=== PATIENT | female | born 1930 | race Caucasian/White ===

== ENCOUNTER 2017-06-28 12:25 | Inpatient (IN) ==
[2017-06-28] MEDS ORDERED: CARDIZEM IV ONE (13:10)
[2017-06-28 13:21] LABS: BASO% 0.3 % (0.0-0.8); HEMATOCRIT 30.3 % (37.0-47.0); HEMOGLOBIN 8.5 g/dL (12.0-16.0); LYMPH# 0.53 X1000 (1.2-3.4); LYMPH% 4.4 % (20.5-51.1); MANUAL DIFF NEEDED? NO; MCH 18.6 PG (27-31); MCHC 28.1 g/dL (33-37); MCV 66.4 FL (81-99); MONO# 0.42 X1000 (0.11-0.59); MONO% 3.5 % (1.7-9.3); MPV 10.3 FL (7.4-10.4); NEUT% 91.8 % (42.2-75.2); PLT 412 X1000 (130-400); RBC 4.56 XMIL (4.2-5.4)
[2017-06-28 13:41] LABS: INR 1.04
[2017-06-28 13:42] LABS: ALBUMIN 3.5 g/dL (3.5-5.0); POTASSIUM 4.4 mmol/L (3.5-5.1); TOTAL BILIRUBIN 0.29 mg/dL (0.20-1.00); TOTAL PROTEIN 6.3 g/dL (6.3-8.3)
[2017-06-28 13:44] LABS: PTT HEPARIN PROTOCOL 23.8 Seconds
--- NOTE | 2017-06-28 13:48 | EKG Report ---
Test Performed on : 06/28/2017 12:33:47 PM Test Reason : ABNORMAL EKG Blood Pressure : / mmHG Vent. Rate : 138 BPM Atrial Rate : 150 BPM P-R Int : 000 ms QRS Dur : 134 ms QT Int : 382 ms P-R-T Axes : 000 -74 083 degrees QTc Int : 578 ms Atrial fibrillation. with rapid ventricular response. Right bundle branch block Left anterior fascicular block Bifascicular block Anterior infarct , age undetermined T wave abnormality, consider inferior ischemia Abnormal ECG When compared with ECG of 11-FEB-2016 07:26, Anterior infarct is now present ST elevation has replaced ST depression in Anterolateral leads T wave inversion now evident in Inferior leads T wave inversion less evident in Anterior leads Unconfirmed Result
[2017-06-28] MEDS ORDERED: CARDIZEM 100 MG/NS 100 MG/100 ML IVPB IV SCH (13:55)
--- NOTE | 2017-06-28 14:00 | Diag Imaging Result Doc PS360 ---
EXAM: CHEST-PORTABLE INDICATION: chest pain TECHNIQUE: One view COMPARISON: 02/08/2016 FINDINGS: The lungs are grossly clear. There is no discrete pleural fluid collection or pneumothorax. The cardiomediastinal silhouette and central vasculature are grossly unremarkable. There are several chronic appearing rib fractures on the right. However, they cannot be identified on the previous study from 2016. IMPRESSION: No evidence of acute pathology by plain radiograph. Electronically signed by Kyler Pagan 06/28/2017 1:58 PM
[2017-06-28 15:05] LABS: URINE MICRO REVIEW NEEDED? NO; URINE SOURCE CATH
[2017-06-28 15:10] LABS: BILIRUBIN URINE NEGATIVE (NEGATIVE); BLOOD URINE NEGATIVE (NEGATIVE); COLOR YELLOW; GLUCOSE URINE NEGATIVE (NEGATIVE); LEUKOCYTES URINE TRACE (NEGATIVE); NITRITE URINE NEGATIVE (NEGATIVE); PROTEIN URINE 30 mg/dL (NEGATIVE); SP GRAVITY URINE 1.024; TURBIDITY URINE HAZY (CLEAR); UR EPITHELIAL CELLS <10 /HPF (<10); URINE BACTERIA 4+ /HPF; URINE RBC <10 /HPF (<10); UROBILINOGEN URINE 2 mg/dL (NORMAL)
[2017-06-28 15:42] LABS: CK INDEX 10.1 (0.0-2.5); CK-MB 57.62 ng/mL (0.0-5.0)
[2017-06-28] MEDS ORDERED: HEPARIN IV ONE (16:23)
[2017-06-28] MEDS ORDERED: ASPIRIN PO ONE (16:26)
[2017-06-28] MEDS: HEPARIN 25,000 UNITS/D5W 25,000 UNIT/250 ML IV.SOLN IV SCH ×2 (16:30→19:43)
--- NOTE | 2017-06-28 16:48 | CONSULTATION ---
DATE OF CONSULTATION: 06/28/2017 HISTORY: Ms. Kirk is an 87-year-old female, known to our service who has a chronic atrial fibrillation, hypertension, pulmonary arterial hypertension, history of blood loss and chronic anemia, and breast cancer status post mastectomy in the past. She was brought to the emergency room with palpitations over the last 1-2 days, then that worsened and she also complains of having epigastric and retrosternal chest discomfort. However, she said that when she takes a deep breath, the symptoms of chest pain get worse. She has chronic anemia. Does not complain of any GI or bleeding at the present time. She also complains of being short of breath. She is noted to have a rapid ventricular rate. She was started on a Cardizem drip. REVIEW OF SYSTEMS: A 14-point review of systems was done. GI: There is no history of nausea. There is no history of hematemesis or melena. Central nervous system: No focal weakness to suggest a CVA or TIA. Genitourinary: There is no dysuria or hematuria. Respiratory system as above. In addition, there is no history of cough, expectoration or hemoptysis. PAST MEDICAL HISTORY: 1. Atrial fibrillation. 2. Has chronic anemia, is not anticoagulated given GI bleed in the distant past and fall also. 3. Hypertension. 4. Hypothyroidism. 5. Status post mastectomy. 6. LV dysfunction. Ejection fraction of 45-50%. 7. History of breast cancer. 8. Cataract extraction. 9. Hysterectomy. 10. Mastectomy. SOCIAL HISTORY: She does not smoke and does not drink. Patient is , retired and lives with the help of her son. ALLERGIES: She is allergic to statins. PHYSICAL EXAMINATION: Vital Signs: Blood pressure was 126/82. Cardiovascular: Normal jugular venous pressure. First and second heart sounds were heard. There is faint systolic murmur. Respiratory system: Normal air entry with no crepitations. Abdomen: Soft, nontender. There was no guarding or rigidity. Bowel sounds were heard. Central nervous system: Alert and oriented. Moving all 4 extremities. Extremities: Examination revealed trace edema. HEENT: She looked pale. Pupils were reacting to light. LABORATORY EXAMINATION: Sodium 138, potassium 4.4, BUN 21, creatinine 1.0. Hemoglobin 8.5, hematocrit 30.3, platelet count of 412, WBC 11.96. D-dimer 1.74. CK-MB 57, CK of 568, troponin 2.380. Electrocardiogram revealed atrial fibrillation. There was no acute ST-T changes to suggest ischemia. There was right bundle branch block. Electrocardiogram revealed normal sinus rhythm. The old electrocardiogram revealed normal sinus rhythm with interventricular conduction delay. Electrocardiogram here revealed atrial fibrillation with interventricular conduction delay with ST elevation noted in the lateral leads, that was earlier this morning and she has home health. Compared to the old EKG, there is an electrocardiogram difference. ASSESSMENT AND PLAN: Ms. Kelly Kirk is an 87-year-old lady with chronic atrial fibrillation with previous electrocardiogram having interventricular conduction delay. Has been having chest pain. There is a pleuritic component of chest pain as well with elevated D-dimers; however, she is going to have a CT scan done. ST elevation was noted in the earlier EKGs and we will start her on IV heparin given the abnormal EKG, which was done much earlier and she has been having these symptoms for over a couple of days and abnormal cardiac enzymes. CK one set 568, CK-MB 57, troponin of 2.380, D-dimer 1.74. She is recommended a cardiac catheterization. Risks, benefits and alternatives were explained to the family and patient. In addition, would recommend transfer her to [facility]. We will start her on IV heparin. cc: Clifford Kay MD
--- NOTE | 2017-06-28 17:13 | Diag Imaging Result Doc PS360 ---
EXAM: CT ANGIOGRM/PULMONARY ARTERIES INDICATION: chest pain, elevated d-dimer TECHNIQUE: Dose reduction protocol was used. In addition to standard thin section axial images, coronal and radial MIPS were obtained. COMPARISON: None. FINDINGS: There is no evidence of pulmonary embolism. There is patchy aortic atherosclerotic calcification. There is no evidence of aortic aneurysm. There is coronary artery calcification. There is moderate cardiomegaly. There is interstitial thickening with a basilar predominance that likely represents mild edema. There is also a component of subsegmental atelectasis at the lung bases. There is no pleural fluid collection and no pneumothorax. Limited views of the upper abdomen reveals a calcified stone in the lumen of the gallbladder and an intrarenal stone on the left. IMPRESSION: 1.No evidence of pulmonary embolism. 2.Cardiomegaly. 3.Interstitial thickening with a basilar predominance likely representing mild pulmonary edema. 4.Other incidental/nonacute findings detailed above. Electronically signed by Kyler Pagan 06/28/2017 5:11 PM
--- NOTE | 2017-06-28 17:53 | PROVIDER DOCUMENTATION ---
This chart was entered by Elbert Partida Scribe, acting as scribe for Hao Barnard MD. HPI-Chest Pain - General Chief Complaint: Chest Pain Stated Complaint: ABNORMAL EKG Time Seen by Provider: 06/28/17 12:52 Source: patient Allergies/Adverse Reactions: Patient Allergies Allergy/AdvReac Type Severity Reaction Status Date / Time Tlaeisi-Heq-Blt Reductase Allergy VOMITING Verified 02/08/16 11:19 Inhibitor Home Medications: Home Medication List Medication Instructions Recorded Confirmed Last Taken Type Ezetimibe [Zetia] 10 mg PO DAILY 04/01/15 02/08/16 02/08/16 10:30 History Levothyroxine [Synthroid] 75 microgm PO DAILY 04/01/15 02/08/16 02/08/16 History Diltiazem L.a. [Cardizem LA] 180 mg PO BID #60 tablet 02/13/16 Unknown Rx Docusate Sodium [Colace] 100 mg PO BID #60 capsule 02/13/16 Unknown Rx Ferrous Sulfate 325 mg PO BID #60 tablet 02/13/16 Unknown Rx Metoprolol Succinate E.r. [Toprol 50 mg PO BID #60 tablet 02/13/16 Unknown Rx Xl] - History of Present Illness-CP Nature of Presenting Problem: Patient is a 87 y/o F that presents to the ER after having substernal chest pressure( felt like indigestion). denies shortness of breath, n/v, or back pain. Pain is gone when arrival in the ER> patient was sent by PCP for evaluation after having abnormal EKG in office Location: reports: substernal Quality of Pain: reports: indigestion Severity in ED: moderate Onset/Duration: abrupt, this morning Timing: improving Context/Activities at Onset: reports: none Modifying Factors: improves with: nothing Associated Symptoms: reports: heartburn. denies: back pain, diaphoresis, fever/ chills, nausea, shortness of breath, vomiting Nitro Today/Relief: no nitro taken today Aspirin Treatment Today: 325 mg x 1, provided by ED Prior Chest Pain/Cardiac Workup: reports: other (a-fib) Similar Symptoms Previously?: No Recently Seen Here or By Another Healthcare Provider: Yes Review of Systems - Adult - REVIEW OF SYSTEMS - ADULT Constitutional: denies: chills, fever Eyes: reports: no symptoms reported Ears, Nose, Mouth & Throat: reports: no symptoms reported Cardiovascular: reports: chest pain. denies: orthopnea, palpitations, syncope Respiratory: denies: cough, shortness of breath, wheezing Gastrointestinal: denies: abdominal pain, hematemesis, diarrhea, nausea, rectal bleeding, vomiting Genitourinary: reports: no symptoms reported Musculoskeletal: reports: no symptoms reported Integumentary: reports: no symptoms reported Neurological: reports: no symptoms reported Psychiatric: reports: no symptoms reported Endocrine: reports: no symptoms reported Hematologic/Lymphatic: reports: no symptoms reported Allergic/Immunologic: reports: no symptoms reported All Other Systems: Reviewed and Negative Past History - Adult - PAST MEDICAL HISTORY-ADULT Review of Records: reports: Old Records Reviewed, Nursing Assessment Review, Medications Reviewed Cardiovascular: reports: A-Fib, HTN, hyperlipidemia Obstetrical/Gynecological: reports: other (breast ca) Endocrine/Immune: reports: thyroid disorder - PRIOR SURGERIES/PROCEDURES Surgical/Procedure History: reports: hysterectomy, breast (right masectomy) - IMMUNIZATION STATUS Childhood Immunizations: See Nurse Assessment Flu Vaccine: See Nurse Assessment - FAMILY HISTORY Family History: reviewed, not pertinent - SOCIAL HISTORY Smoking: non-smoker Living Situation: family Physical Exam-General - PHYSICAL EXAM-ADULT Initial Vital Signs Reviewed: Yes - CONSTITUTIONAL General Appearance: alert, mild distress, moderate distress - EYES Eyes: PERRL/EOMI, pale conjunctivae - HEAD, EARS, NOSE, MOUTH & THROAT HENMT: normocephalic/atraumatic, normal ENT inspection, other (dry oral mucosa) - NECK Neck: full range of motion, normal inspection - RESPIRATORY Respiratory: lungs clear, normal breath sounds, no respiratory distress, no accessory muscle use - CARDIOVASCULAR Cardiovascular: no JVD, irregularly irregular - GASTROINTESTINAL (ABDOMEN) Abdominal Exam: normal bowel sounds, non tender, soft - MUSCULOSKELETAL Extremity: normal range of motion, no pedal edema, normal capillary refill, pelvis stable - SKIN Integumentary: pallor. negative: cyanosis - NEUROLOGIC Neurologic: grossly normal, no motor/sensory deficits - PSYCHIATRIC Psych/Mental Status: other (to her normal baseline) Progress - PLAN OF CARE/RESULTS Progress/Plan/Lab Results: Vital Signs - 8 hr 06/28/17 12:32 06/28/17 14:00 06/28/17 17:01 Temperature 98.3 F Pulse Rate 110 H 108 H 91 H Respiratory Rate 18 22 Blood Pressure 106/72 126/82 169/79 O2 Sat by Pulse Oximetry 100 99 97 Laboratory Results - last 24 hr 06/28/17 06/28/17 06/28/17 13:09 13:09 13:09 WBC 11.96 H RBC 4.56 Hgb 8.5 L Hct 30.3 L MCV 66.4 L MCH 18.6 L MCHC 28.1 L RDW Std Deviation 19.8 H Plt Count 412 H MPV 10.3 Immature Gran % (Auto) 0.0 Neut % (Auto) 91.8 H Lymph % (Auto) 4.4 L Garvin % (Auto) 3.5 Eos % (Auto) 0.0 Baso % (Auto) 0.3 Immature Gran # (Auto) 0.00 Neut # (Auto) 10.98 H Lymph # (Auto) 0.53 L Garvin # (Auto) 0.42 Eos # (Auto) 0.00 Baso # (Auto) 0.03 PT INR PTT (Heparin Protocol) D-Dimer Sodium 138 Potassium 4.4 Chloride 99 Carbon Dioxide 22 L Anion Gap 17 BUN 21 Creatinine 1.0 H Estimated GFR/1.73 m2 53 BUN/Creatinine Ratio 21 Glucose 152 H Calculated Osmolality 282 Calcium 9.0 Total Bilirubin 0.29 AST 62 H ALT 19 Alkaline Phosphatase 72 Creatine Kinase Creatine Kinase Index CK-MB (CK-2) Troponin T 2.380 H* Total Protein 6.3 Albumin 3.5 Globulin 2.8 Albumin/Globulin Ratio 1.3 Urine Source Urine Color Urine Turbidity Urine pH Ur Specific Lincoln Urine Protein Ur Glucose (Stick) Ur Ketones (Stick) Urine Blood Urine Nitrite Urine Bilirubin Urobilinogen Dipstick Urine Leukocytes Urine WBC (Auto) Urine RBC (Auto) U Epithel Cells (Auto) Urine Bacteria (Auto) 06/28/17 06/28/17 06/28/17 13:09 13:09 13:09 WBC RBC Hgb Hct MCV MCH MCHC RDW Std Deviation Plt Count MPV Immature Gran % (Auto) Neut % (Auto) Lymph % (Auto) Garvin % (Auto) Eos % (Auto) Baso % (Auto) Immature Gran # (Auto) Neut # (Auto) Lymph # (Auto) Garvin # (Auto) Eos # (Auto) Baso # (Auto) PT 11.0 INR 1.04 PTT (Heparin Protocol) 23.8 D-Dimer 1.74 H Sodium Potassium Chloride Carbon Dioxide Anion Gap BUN Creatinine Estimated GFR/1.73 m2 BUN/Creatinine Ratio Glucose Calculated Osmolality Calcium Total Bilirubin AST ALT Alkaline Phosphatase Creatine Kinase 568 H Creatine Kinase Index 10.1 H CK-MB (CK-2) 57.62 H Troponin T Total Protein Albumin Globulin Albumin/Globulin Ratio Urine Source Urine Color Urine Turbidity Urine pH Ur Specific Lincoln Urine Protein Ur Glucose (Stick) Ur Ketones (Stick) Urine Blood Urine Nitrite Urine Bilirubin Urobilinogen Dipstick Urine Leukocytes Urine WBC (Auto) Urine RBC (Auto) U Epithel Cells (Auto) Urine Bacteria (Auto) 06/28/17 15:00 WBC RBC Hgb Hct MCV MCH MCHC RDW Std Deviation Plt Count MPV Immature Gran % (Auto) Neut % (Auto) Lymph % (Auto) Garvin % (Auto) Eos % (Auto) Baso % (Auto) Immature Gran # (Auto) Neut # (Auto) Lymph # (Auto) Garvin # (Auto) Eos # (Auto) Baso # (Auto) PT INR PTT (Heparin Protocol) D-Dimer Sodium Potassium Chloride Carbon Dioxide Anion Gap BUN Creatinine Estimated GFR/1.73 m2 BUN/Creatinine Ratio Glucose Calculated Osmolality Calcium Total Bilirubin AST ALT Alkaline Phosphatase Creatine Kinase Creatine Kinase Index CK-MB (CK-2) Troponin T Total Protein Albumin Globulin Albumin/Globulin Ratio Urine Source CATH Urine Color YELLOW Urine Turbidity HAZY Urine pH 6.0 Ur Specific Lincoln 1.024 Urine Protein 30 A Ur Glucose (Stick) NEGATIVE Ur Ketones (Stick) NEGATIVE Urine Blood NEGATIVE Urine Nitrite NEGATIVE Urine Bilirubin NEGATIVE Urobilinogen Dipstick 2 A Urine Leukocytes TRACE A Urine WBC (Auto) 10-20 A Urine RBC (Auto) <10 U Epithel Cells (Auto) <10 Urine Bacteria (Auto) 4+ Orders Category Date Time Status Nursing- MD Consult Request ROUTINE Care 06/28/17 16:10 Active Straight Catheterization ORDERED Care 06/28/17 15:00 Active MD [Physician/Provider Consults] Routine Cons 06/28/17 16:10 Ordered CHEST-PORTABLE [RAD] Stat Exams 06/28/17 13:[address] ANGIOGRM/PULMONARY ARTERIES [CT] Stat Exams 06/28/17 15:46 Completed CBC WITH ELECTRONIC DIFF [HEME] Stat Lab 06/28/17 13:09 Completed CK PROFILE [SP CHEM] Q8H Lab 06/28/17 21:00 Ordered CK PROFILE [SP CHEM] Q8H Lab 06/29/17 05:00 Ordered CK PROFILE [SP CHEM] Q8H Lab 06/29/17 13:00 Ordered CK PROFILE [SP CHEM] Stat Lab 06/28/17 13:09 Completed COMPREHENSIVE METABOLIC PANEL [CHEM] Stat Lab 06/28/17 13:09 Completed D-DIMER [CHEM] Stat Lab 06/28/17 13:09 Completed PROTIME WITH INR [COAG] Stat Lab 06/28/17 13:09 Completed PTT HEPARIN PROTOCOL [COAG] Stat Lab 06/28/17 13:09 Completed TROPONIN T Q8H Lab 06/28/17 21:00 Ordered TROPONIN T Q8H Lab 06/29/17 05:00 Ordered TROPONIN T Q8H Lab 06/29/17 13:00 Ordered TROPONIN T Stat Lab 06/28/17 13:09 Completed URINALYSIS-1 [URINALYSIS] Stat Lab 06/28/17 15:00 Completed Aspirin Med 06/28/17 16:26 Discontinued 325 mg PO NOW ONE Diltiazem 100 mg/Ns [Cardizem 100 mg/Ns] Med 06/28/17 13:55 Discontinued 100 mg in 100 ml IV 4 mg/hr Diltiazem [Cardizem] Med 06/28/17 13:10 Discontinued 10 mg IV NOW ONE Heparin Med 06/28/17 16:23 Discontinued 5,000 unit IV NOW ONE Heparin 25,000 Units/D5w Med 06/28/17 16:30 Active 25,000 unit in 250 ml IV 8.981 mls/hr Metoprolol [Lopressor] Med 06/28/17 21:00 Active 12.5 mg PO BID EKG [EKG] Routine Ther 06/29/17 06:00 Ordered EKG [EKG] Stat Ther 06/28/17 12:31 Draft 1546-ct angio pe study ordered [id number]-Patient will be transferred post CT scan, and Mayo Velasquez PA-C are setting up transfer. patient reported to them about a 1 to 2 day history of chest pain Result Diagrams: 06/28/17 13:09 06/28/17 13:09 - EKG 1 Time of EKG reading by physician:: 12:33 EKG Read and Signed by:: Hao Barnard EKG Interpretation (*Must complete 3 of following elements*): Abnormal Rate: 138 Rhythm: a-fib with rvr QRS: RBB ST Wave: non-specific ST changes - XRAY 1 XRAY Study: Chest Impression: Abnormal XRAY Interpretation: nad, chronic old rib fxs - CT/MRI 1 CT Study: Angiogram (PE study) Impression: Abnormal CT Results: cmg, no pe - CONSULTS/PCP/HOSPITALIST Notification #1 *Consult/PCP/Hospitalist*: mayo velasquez pa-c Time Discussed: 14:32 Reason/Comments: will run it by #2 Consult: Mayo Velasquez Pa-C Time Discussed: 14:50 Reason/Comments: will see in ED, run d-dimer and ck Consult Disposition: Will see in ED Departure - Departure Date of Disposition Decision: 06/28/17 Time of Disposition Decision: 17:00 DIAGNOSIS: HI (myocardial infarction), ACS (acute coronary syndrome) Disposition: [place] [address] Certified Medical Emergency: Emergent Condition: Stable Referrals and Follow-Ups: Harry Yarbrough MD [Primary Care Provider] - - Critical Care Note This patient required my direct & personal management of CC.: Yes Attestation - Physician/ CHRISTIE Attestation The physician spent face to face time with patient:: Yes Advanced Practice Provider documentation review:: Supervising physician onsite and consulted in the evaluation and care of this patient. The physician did have a face to face encounter with the patient. This chart was documented by the indicated scribe, (Elbert Partida, Dimitry) and accurately reflects the services I performed and decisions made by me, Hao Barnard MD, as attested by the provider's signature.
[2017-06-28] MEDS: LOPRESSOR PO SCH (21:00)
--- NOTE | 2017-06-28 22:14 | HISTORY AND PHYSICAL ---
PRIMARY CARE PHYSICIAN: Unknown. CHIEF COMPLAINT: Chest pain. Palpitation. Shortness of breath. HISTORY OF PRESENTING ILLNESS: This is an 87-year-old elderly female with a history of chronic atrial fibrillation, hypertension, chronic anemia, hypothyroidism, who apparently had been taken off of Coumadin due to a severe GI bleeds in the past. Presented to emergency department with complaints of chest pain, shortness of breath and palpitations. She was evaluated in the ER. She had EKG done which did show ST elevation and it was thought that she would need transfer to [place] for heart catheterization; however, no beds are available, so subsequently the patient will be admitted to the ICU until a bed opens up. At time of my examination, she had denied any headache, fever, chills, hemoptysis, or weight changes. Patient is a poor historian. PAST MEDICAL HISTORY: History of chronic atrial fibrillation, hypertension, chronic anemia, hypothyroidism, breast cancer. PAST SURGICAL: Mastectomy. Cataract surgery. ALLERGIES: Statins. CURRENT MEDICATIONS: As listed in the medication reconciliation sheet. SOCIAL HISTORY: She denies any history of smoking, alcohol or illicit drug use. FAMILY HISTORY: No history of coronary disease. REVIEW OF SYSTEMS: 12 point review of systems is as listed in HPI. Other systems negative. PHYSICAL EXAMINATION: GENERAL: The patient is resting comfortably. VITAL SIGNS: Temperature 98.3 degrees, pulse 110, respiration 18, blood pressure 106/72. HEENT: Atraumatic, normocephalic. Extraocular movements intact. PERRLA. NECK: No masses. CHEST: Bibasilar rales. CARDIOVASCULAR: Irregular. ABDOMEN: Soft. Positive bowel sounds. EXTREMITIES: Trace edema. NEUROLOGIC: She is awake, alert, oriented x1. : No bladder distention. SKIN: Warm. LABORATORIES AND STUDIES: WBC 11.96, hemoglobin 8.5, hematocrit 30.3, platelets 412,000. Sodium 138, potassium 4.4, chloride 99, CO2 of 22, BUN is 21, creatinine 1, glucose is 152, troponin is 2.380. ASSESSMENT: This is an 87-year-old elderly female with a history of chronic atrial fibrillation, hypertension, chronic anemia and hypothyroidism, who had presented to emergency department with complaints of chest pain. She was evaluated in the ED. She had EKG which did show ST elevation and also elevated troponins consistent with ST-elevation myocardial infarction. Subsequently, she was to be [facility] to [facility]; however, there is no bed available. Subsequently, she will be admitted to ICU until a bed opens up. ASSESSMENT: 1. Acute myocardial infarction. 2. Atrial fibrillation with rapid ventricular response. 3. Chronic anemia. 4. Hypertension. 5. Underlying dementia. PLAN: 1. We will admit patient to ICU. 2. Continue patient on a heparin drip. 3. Cardizem was initially started; however, is held due to patient becoming more hypertensive. 4. Monitor hemoglobin and hematocrit closely. 5. Monitor blood pressure closely. 6. Patient will be also on SCDs for DVT prophylaxis. 7. I will continue to follow and reassess. Patient's condition is guarded. cc: Lj Smith MD
[2017-06-28 23:55] LABS: CK INDEX 10.9 (0.0-2.5); CK-MB 62.45 ng/mL (0.0-5.0)
[2017-06-28] MEDS ORDERED: TYLENOL PO PRN (23:58)
[2017-06-28] MEDS ORDERED: ZOFRAN IV PRN (23:58)
[2017-06-28] MEDS ORDERED: AMBIEN PO PRN (23:58)
[2017-06-29] MEDS: LOPRESSOR PO SCH ×2 (00:08→09:35)
[2017-06-29 01:32] LABS: CK INDEX 10.5 (0.0-2.5); CK-MB 53.36 ng/mL (0.0-5.0)
[2017-06-29 06:05] LABS: BASO% 0.1 % (0.0-0.8); IMM GRAN# 0.04 X1000 (0.0-0.04); IMM GRAN% 0.3 % (0.0-0.5); LYMPH# 0.89 X1000 (1.2-3.4); LYMPH% 5.7 % (20.5-51.1); MANUAL DIFF NEEDED? YES; MCH 18.8 PG (27-31); MCHC 28.6 g/dL (33-37); MCV 65.9 FL (81-99); MONO# 1.43 X1000 (0.11-0.59); MONO% 9.2 % (1.7-9.3); NEUT% 84.7 % (42.2-75.2); PLT 380 X1000 (130-400); RBC 4.25 XMIL (4.2-5.4)
[2017-06-29 06:56] LABS: BANDS 2 % (0-1); LYMPHS 4 % (21-51); MONO 6 % (1-9)
[2017-06-29 06:57] LABS: HYPOCHROM 1+
[2017-06-29 07:07] LABS: CK INDEX 8.8 (0.0-2.5); CK-MB 34.34 ng/mL (0.0-5.0)
[2017-06-29] MEDS ORDERED: MORPHINE IV PRN (09:58)
[2017-06-29] MEDS ORDERED: ZOSYN 3.375 GM in NS 50 ML IV ONE (10:12)
--- NOTE | 2017-06-29 11:26 | EKG Report ---
Test Performed on : 06/29/2017 09:34:54 AM Test Reason : KS, chest pain Blood Pressure : / mmHG Vent. Rate : 107 BPM Atrial Rate : 308 BPM P-R Int : 000 ms QRS Dur : 136 ms QT Int : 376 ms P-R-T Axes : 000 -67 095 degrees QTc Int : 501 ms Atrial flutter. with variable AV block. Right bundle branch block Left anterior fascicular block Bifascicular block Anteroseptal infarct (cited on or before 28-JUN-2017) T wave abnormality, consider lateral ischemia Abnormal ECG When compared with ECG of 28-JUN-2017 12:33, (Unconfirmed) Atrial flutter. has replaced Atrial fibrillation. Clinical Correlation advised Confirmed by Kosta Wilkins DO ([id number]) on 06/29/2017 5:04:47 PM
--- NOTE | 2017-06-29 11:26 | DISCHARGE SUMMARY ---
ADMISSION DATE: 06/28/2017 DISCHARGE DATE: CONSULTATIONS: Clifford Kay MD - Cardiology ADMISSION DIAGNOSES: 1. Acute ST elevated myocardial infarction. Plans for transfer to [facility] for intervention. 2. Atrial fibrillation with rapid ventricular rate. 3. Chronic anemia. 4. Hypertension. 5. Underlying dementia. DISCHARGE DIAGNOSES: 1. Acute ST elevated myocardial infarction. 2. Atrial fibrillation with rapid ventricular rate. 3. Chronic anemia. 4. Hypertension. 5. Underlying dementia. 6. Urinary tract infection that was present on admission. 7. Leukocytosis. PROCEDURES: None. HOSPITAL COURSE: Ms. Kelly Kirk is an 87-year-old female, who has a medical history of chronic atrial fibrillation, hypertension, chronic anemia, and hypothyroidism, who had been taken off of Coumadin due to severe GI bleeds in the past. Presented to the emergency department on 06/28/2017 with complaints of chest pain, shortness of breath, and palpitations. Evaluation in the ER revealed that she had ST elevation on her electrocardiogram, specifically in leads in V3, V4, V5, V6, with a troponin that had elevated from. 3.69 on admit down to 2.82 by discharge. Upon assessment this morning, she was having chest pain 10/10, that radiated down the left arm and into her back. There was some mild wheezing noted, facial grimacing, dyspnea, with a complaint of 10/10 pain. She received morphine for pain relief, which improved her pain. She also had an elevated white blood cell on admit, was 11,000 and by today it was 15,000. Urinalysis revealed that she had 4+ bacteria, 10-20 white blood cells. She was afebrile, but a one time dose of Zosyn was given prior to transfer, as she received a [place] yesterday on admit and urinalysis was obtained on admit. Her anemia appears to be stable. Her heart rate with atrial fibrillation was 110 on admit, 116 on discharge. The lowest it went was 85, 84. She did receive Cardizem on admit and was started on 12.5 of metoprolol twice a day. Given her acute coronary syndrome with ST elevated myocardial infarction, she was started on a heparin drip. Her blood pressure remained stable. There was one point in the night that it had dropped down to 76, but primarily it was anywhere from 106 up to 169 systolic. She remained on 3 L nasal cannula with stable O2 saturations of 95-100%. Echocardiogram had been ordered but not performed prior to transfer. The patient continued on heparin throughout the night. Apparently only had abdominal pain secondary to her urinary tract infection, but again did have chest pain that started back up this morning which was relieved with morphine. She emergently left via ambulance to [facility]. Cardiac short-stay for vascular intervention and was accepted by Dr. Albarran. PHYSICAL EXAMINATION: Discharge Vital Signs: Temperature 98.6 degrees, heart rate 116 and regular, respiratory rate 24, blood pressure 134/92, O2 saturation 95% on 3 L nasal cannula. DISCHARGE MEDICATIONS: 1. Heparin drip per protocol. 2. Tylenol p.r.n. 3. Metoprolol 12.5 mg p.o. twice daily. 4. Morphine 2-4 IV q.3 hours p.r.n. 5. Zofran p.r.n. 6. Ambien p.r.n. nightly. 7. Aspirin. DISCHARGE DIET: NPO for procedure. DISCHARGE DISPOSITION: Cardiac short-stay at [facility] with Dr. Albarran accepting. Dictated by CHARLIE Lara for David Mclaughlin MD cc: CHARLIE Lara MD
[2017-06-29 11:28] VITALS: BP 137/92
== END 2017-06-29 10:45 | disposition short-term general hospital (02) ==
LOC: ED 12:25 → SUATTDRO 06-29 00:03 → EDIPHOLD 06-29 00:03
PROVIDERS: ATTEND Internal Medicine